=== PATIENT | female | born 1970 | race Caucasian/White ===

== ENCOUNTER 2016-11-02 05:34 | Emergency (ER) | payer OTHER ==
--- NOTE | 2016-11-02 07:45 | DIAGNOSTIC IMAGING REPORT ---
PROCEDURE: XR ABDOMEN 1 VIEW UPRIGHT INDICATION: ABDOMINAL PAIN, initial encounter TECHNIQUE: AP upright view. COMPARISON: None. FINDINGS: Gastric band device in place. Lower abdominal and upper pelvic surgical tacks consistent with a herniorrhaphy. Distended stomach with large air-fluid level. There are small air fluid levels throughout the abdomen. There is no free air, mass or suspicious calcification. Mild degenerative changes. IMPRESSION: 1. Gastric band device in place 2. Ventral herniorrhaphy 3. Diffuse air-fluid levels which may represent gastroenteritis or ileus. Small bowel obstruction is less likely.
--- NOTE | 2016-11-02 08:14 | ED NURSING NOTES ---
Clinical Report - Nurses [facility] [address] [place] [address] 11/02/2016 5:35 Patient: JENNIFER BROWN TRIAGE Triage time 0544. Acuity: LEVEL 3. Chief Complaint: NAUSEA, VOMITING and DIARRHEA and ACHES. --05:48 Robb Mcgrath R.N. 05:44 11/02/16. BP: 96/61. HR: 82. RR: 16. O2 saturation: 100%. Temp: 98 F. Pain level now 10. --05:48 Robb Mcgrath R.N. Weight: 81.6 kg stated. Height/Length: 65 inches Per Patient. BMI: 30. --05:48 Rbob Mcgrath R.N. Medications None. --05:45 Robb Mcgrath R.N. Allergies Zofran. --05:45 Robb Mcgrath R.N. History Arrived by private vehicle. Historian: patient. Unaccompanied. ( wednesday last). Last oral intake by patient was (minutes ago). Treatment SERVICE MEMBER: (gatorade). PAST MEDICAL HX: Last normal menstrual period- about 1 months ago. SOCIAL HX: Heavy tobacco smoker- 1 pack per day. History of occasional drug use: marijuana. No alcohol use. FALL RISK ASSESSMENT: Fall risk assessment completed. No fall risk identified. NUTRITIONAL RISK ASSESSMENT: The nutritional risk assessment revealed no deficiencies. FUNCTIONAL ASSESSMENT: Functional assessment: no impairments noted. LEARNING NEEDS ASSESSMENT: The learning needs assessment revealed no barriers. SKIN INTEGRITY ASSESSMENT: Skin integrity risk assessment completed. No skin integrity risk identified. --05:48 Robb Mcgrath R.N. PAST MEDICAL HX: ( pt sitting in triage drinking gatorade without incident.). --05:50 Robb Mcgrath R.N. ( throws up any food eaten). --05:50 Robb Mcgrath R.N. ADDITIONAL SURGERIES: Hernia Repair. Lapband. --05:46 Robb Mcgrath R.N. Interventions ID band on patient. --05:48 Robb Mcgrath R.N. PHYSICAL ASSESSMENT GENERAL / NEURO / PSYCH: Alert. Oriented X 4. Appears in no acute distress. HEENT: Mucous membranes are pink. RESPIRATORY: Respirations not labored. Breath sounds within normal limits. CVS: Normal sinus rhythm noted. Capillary refill less than 2 seconds. GI / : Abdomen soft. Bowel sounds within normal limits. SKIN: Skin is warm and dry. --05:49 Robb Mcgrath R.N. NURSING PROGRESS NOTES Patient gowned. Head of bed elevated. Reassurance given. Patient identifiers checked. Call light placed in reach. Side rails up x 2. Bed placed in lowest position. Brakes of bed on. --05:49 Robb Mcgrath R.N. 06:57 11/02/2016 Site #1 started via IV antecubital space with an 20g angiocath; one attempt. Blood drawn: rainbow set. Labeled in the presence of the patient and sent to the lab. Saline lock flushed with saline. --06:57 Robb Mcgrath R.N. 06:57 11/02/2016 PHENERGAN (Promethazine HCl) IVP 12.5 mg given. via site #1. Allergies verified and confirmed 5 rights. IV patency established. IV site checked: no pain, redness, or swelling. IV flushed thoroughly pre- and post-medication administration. --06:57 Robb Mcgrath R.N. 07:25 11/02/2016 Started bag #1 1000 mL IV Fluids IV NS (Saline); at 1000 mL/hr over 1 hour(s) via site #1. Completed per protocol. --07:25 Renetta Lemus R.N. Call light placed in reach. Side rails up x 2. Bed placed in lowest position. Brakes of bed on. Care transferred and report given (MARCELINA Jackson). ( Report from Leg Man, RN. Pt is in X-ray at time of report. When pt returns, IVF can be initiated. 0725, pt in room, lying on right side, sleeping. VS taken. Pt awakes to talk with RN.). --07:28 Renetta Lemus R.N. 07:25 11/02/16. BP: 129/64. HR: 84. RR: 18. O2 saturation: 100%. Pain level now 0/10. --07:28 Renetta Lemus R.N. The patient is resting quietly and sleeping. --07:56 Renetta Lemus R.N. 07:56 11/02/16. HR: 87. O2 saturation: 100%. --07:56 Renetta Lemus R.N. 08:37 11/02/2016 Site #1 removed upon discharge. --08:37 Renetta Lemus R.N. 08:38 11/02/2016 IV Fluids IV NS Discontinued: bag #1 infused. Total amount infused: 1000 mL. IV patency established. IV site checked: no pain, redness, or swelling. IV flushed thoroughly. --08:38 Renetta Lemus R.N. DISPOSITION / DISCHARGE Condition at departure: improved and stable. No learning barriers present. Reviewed medication(s). Work note given. Patient verbalized understanding. Written instructions provided in Estonian. The patient was discharged by the physician. She was discharged home and accompanied by pt calling for a ride she states. She left the Emergency Department ambulatory and via private vehicle. --08:39 Renetta Lemus R.N. 08:38 11/02/16. BP: 143/79. HR: 80. RR: 18. O2 saturation: 100%. Pain level now 0/10. --08:39 Renetta Lemus R.N. Departure time: 08:39 Nov 02 2016. --08:39 Renetta Lemus R.N. ( pt escorted out to the lobby, wanted to sleep in the room.). --08:39 Renetta Lemus R.N. Locked/Released at 11/02/2016 9:33 by Reentta Lemus R.N.
--- NOTE | 2016-11-02 08:14 | ED ORDER SUMMARY ---
..... Patient: JENNIFER BROWN OrderSheet [facility] VisitID: [id number] [address] [place] [address] 46y, F Registration Date/Time: 11/02/2016 ORDER SHEET Weight: 81.6 kg (stated) Allergies: Zofran GENERAL ORDERS: Abdomen 1V Upright Urgent (06:38 11/02/2016 Jayce COUCH) (Ack 6:49 CHagjo ann ER Supervisor [employer]) (6:57 Yenny R.N.) CBC w Diff Urgent (06:38 11/02/2016 Jayce COUCH) (Ack 6:49 Leyla ER Supervisor [employer]) (6:57 Yenny R.N.) CMP Urgent (06:38 11/02/2016 Jayce COUCH) (Ack 6:49 Leyla ER Supervisor [employer]) (6:57 Yenny R.N.) MEDICATION ORDERS: Phenergan IV 12.5 mg (NOW) (06:24 11/02/2016 Jayce COUCH) (6:57 Yenny R.N.) IV FLUIDS: IV NS : initial bolus 1000 mL (1000 mL/hr), then 500 mL/hr for 2h (NOW); Routine (06:23 11/02/2016 Jayce COUCH) (7:25 Kaleb R.N.) ORDER SHEET NOTES: [Electronically signed by Renetta Lemus R.N. (09:33 11/02/2016)] [Electronically signed by Ozzy Hicks MD (12:21 11/05/2016)] [Electronically locked/signed by Renetta Lemus R.N. (09:33 11/02/2016)]
--- NOTE | 2016-11-02 08:14 | ED ORDER SUMMARY ---
..... Patient: JENNIFER BROWN OrderSheet [facility] VisitID: [id number] [address] [place] [address] 46y, F Registration Date/Time: 11/02/2016 ORDER SHEET Weight: 81.6 kg (stated) Allergies: Zofran GENERAL ORDERS: Abdomen 1V Upright Urgent (06:38 11/02/2016 Jayce COUCH) (Ack 6:49 CHagjo ann ER Stencil Maker) (6:57 Yenny R.N.) CBC w Diff Urgent (06:38 11/02/2016 Jayce COUCH) (Ack 6:49 Leyla ER Stencil Maker) (6:57 Yenny R.N.) CMP Urgent (06:38 11/02/2016 Jayce COUCH) (Ack 6:49 Leyla ER Stencil Maker) (6:57 Yenny R.N.) MEDICATION ORDERS: Phenergan IV 12.5 mg (NOW) (06:24 11/02/2016 Jayce COUCH) (6:57 Yenny R.N.) IV FLUIDS: IV NS : initial bolus 1000 mL (1000 mL/hr), then 500 mL/hr for 2h (NOW); Routine (06:23 11/02/2016 Jayce COUCH) (7:25 Kaleb R.N.) ORDER SHEET NOTES: [Electronically signed by Renetta Lemus R.N. (09:33 11/02/2016)] [Electronically signed by Ozzy Hicks MD (12:21 11/05/2016)] [Electronically locked/signed by Renetta Lemus R.N. (09:33 11/02/2016)]
--- NOTE | 2016-11-02 08:14 | ED NURSING NOTES ---
Clinical Report - Nurses [facility] [address] [place] [address] 11/02/2016 5:35 Patient: JENNIFER BROWN TRIAGE Triage time 0544. Acuity: LEVEL 3. Chief Complaint: NAUSEA, VOMITING and DIARRHEA and ACHES. --05:48 Robb Mcgrath R.N. 05:44 11/02/16. BP: 96/61. HR: 82. RR: 16. O2 saturation: 100%. Temp: 98 F. Pain level now 10. --05:48 Robb Mcgrath R.N. Weight: 81.6 kg stated. Height/Length: 65 inches Per Patient. BMI: 30. --05:48 Robb Mcgrath R.N. Medications None. --05:45 Robb Mcgrath R.N. Allergies Zofran. --05:45 Robb Mcgrath R.N. History Arrived by private vehicle. Historian: patient. Unaccompanied. ( wednesday last). Last oral intake by patient was (minutes ago). Treatment ELECTRICAL APPLIANCE REPAIRER: (gatorade). PAST MEDICAL HX: Last normal menstrual period- about 1 months ago. SOCIAL HX: Heavy tobacco smoker- 1 pack per day. History of occasional drug use: marijuana. No alcohol use. FALL RISK ASSESSMENT: Fall risk assessment completed. No fall risk identified. NUTRITIONAL RISK ASSESSMENT: The nutritional risk assessment revealed no deficiencies. FUNCTIONAL ASSESSMENT: Functional assessment: no impairments noted. LEARNING NEEDS ASSESSMENT: The learning needs assessment revealed no barriers. SKIN INTEGRITY ASSESSMENT: Skin integrity risk assessment completed. No skin integrity risk identified. --05:48 Robb Mcgrath R.N. PAST MEDICAL HX: ( pt sitting in triage drinking gatorade without incident.). --05:50 Robb Mcgrath R.N. ( throws up any food eaten). --05:50 Robb Mcgrath R.N. ADDITIONAL SURGERIES: Hernia Repair. Lapband. --05:46 Robb Mcgrath R.N. Interventions ID band on patient. --05:48 Robb Mcgrath R.N. PHYSICAL ASSESSMENT GENERAL / NEURO / PSYCH: Alert. Oriented X 4. Appears in no acute distress. HEENT: Mucous membranes are pink. RESPIRATORY: Respirations not labored. Breath sounds within normal limits. CVS: Normal sinus rhythm noted. Capillary refill less than 2 seconds. GI / : Abdomen soft. Bowel sounds within normal limits. SKIN: Skin is warm and dry. --05:49 Robb Mcgrath R.N. NURSING PROGRESS NOTES Patient gowned. Head of bed elevated. Reassurance given. Patient identifiers checked. Call light placed in reach. Side rails up x 2. Bed placed in lowest position. Brakes of bed on. --05:49 Robb Mcgrath R.N. 06:57 11/02/2016 Site #1 started via IV antecubital space with an 20g angiocath; one attempt. Blood drawn: rainbow set. Labeled in the presence of the patient and sent to the lab. Saline lock flushed with saline. --06:57 Robb Mcgarth R.N. 06:57 11/02/2016 PHENERGAN (Promethazine HCl) IVP 12.5 mg given. via site #1. Allergies verified and confirmed 5 rights. IV patency established. IV site checked: no pain, redness, or swelling. IV flushed thoroughly pre- and post-medication administration. --06:57 Robb Mcgrath R.N. 07:25 11/02/2016 Started bag #1 1000 mL IV Fluids IV NS (Saline); at 1000 mL/hr over 1 hour(s) via site #1. Completed per protocol. --07:25 Renetta Lemus R.N. Call light placed in reach. Side rails up x 2. Bed placed in lowest position. Brakes of bed on. Care transferred and report given (MARCELINA Jackson). ( Report from Academic Affairs Specialist, RN. Pt is in X-ray at time of report. When pt returns, IVF can be initiated. 0725, pt in room, lying on right side, sleeping. VS taken. Pt awakes to talk with RN.). --07:28 Renetta Lemus R.N. 07:25 11/02/16. BP: 129/64. HR: 84. RR: 18. O2 saturation: 100%. Pain level now 0/10. --07:28 Renetta Lemus R.N. The patient is resting quietly and sleeping. --07:56 Renetta Lemus R.N. 07:56 11/02/16. HR: 87. O2 saturation: 100%. --07:56 Renetta Leums R.N. 08:37 11/02/2016 Site #1 removed upon discharge. --08:37 Renetta Lemus R.N. 08:38 11/02/2016 IV Fluids IV NS Discontinued: bag #1 infused. Total amount infused: 1000 mL. IV patency established. IV site checked: no pain, redness, or swelling. IV flushed thoroughly. --08:38 Renetta Lemus R.N. DISPOSITION / DISCHARGE Condition at departure: improved and stable. No learning barriers present. Reviewed medication(s). Work note given. Patient verbalized understanding. Written instructions provided in Hebrew. The patient was discharged by the physician. She was discharged home and accompanied by pt calling for a ride she states. She left the Emergency Department ambulatory and via private vehicle. --08:39 Renetta Lemus R.N. 08:38 11/02/16. BP: 143/79. HR: 80. RR: 18. O2 saturation: 100%. Pain level now 0/10. --08:39 Renetta Lemus R.N. Departure time: 08:39 Nov 02 2016. --08:39 Renetta Lemus R.N. ( pt escorted out to the lobby, wanted to sleep in the room.). --08:39 Renetta Lemus R.N. Locked/Released at 11/02/2016 9:33 by Renetta Lemus R.N.
--- NOTE | 2016-11-02 08:14 | ED CLINICAL REPORT ---
Clinical Report - Physicians/Mid Levels [facility] [address] [place] [address] 11/02/2016 5:35 Patient: JENNIFER BROWN Time Seen: 06:18 Nov 02 2016. Arrived- By private vehicle. Historian- patient. HISTORY OF PRESENT ILLNESS Chief Complaint: VOMITING and DIARRHEA. 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 and is still present. The patient has had nausea and abdominal pain. She has had moderate vomiting (every time we eat.). The vomiting has occurred several times. She has had moderate loose stools. This has occurred several times. It has been watery. Has not recently been on antibiotics. Possible bad food exposure. No known contact with a sick individual. The illness is described as moderate. (( pt sitting in triage drinking gatorade without incident.).). Similar symptoms previously: None. Recent medical care: Not recently seen/assessed. REVIEW OF SYSTEMS No fever, muscle aches, difficulty with urination, dark urine or headache. No dizziness, sore throat, cough, chest pain or difficulty breathing. No excessive urination, skin rash or back pain. All systems otherwise negative, except as recorded above. PAST HISTORY Hernia Repair. Lapband. Medications: None. Allergies: Zofran. SOCIAL HISTORY Heavy tobacco smoker (cigarette)- less than 1 pack per day. History of drug use: marijuana. ADDITIONAL NOTES The nursing notes have been reviewed. PHYSICAL EXAM Vital Signs: 11/02/2016 05:44 BP: 96/61. HR: 82. RR: 16. O2 saturation: 100%. Temp: 98 F. Appearance: Alert. Eyes: Pupils equal, round and reactive to light. Eyes normal inspection. ENT: Nose normal. Dry mucous membranes present. Neck: Normal inspection. CVS: Normal heart rate and rhythm. Heart sounds normal. Pulses normal. Respiratory: No respiratory distress. Breath sounds normal. Abdomen: Soft. Mild tenderness in the periumbilical area. Bowel sounds normal. Back: Normal inspection. Skin: Skin warm. Normal skin color. No rash. Extremities: Extremities exhibit normal ROM. No lower extremity edema. Neuro: Oriented X 3. No motor deficit. LABS, X-RAYS, AND EKG KUB: Normal abdominal study. Laboratory Tests: CBC w Diff: (PRANAY: 11/02/2016 06:48) ( [facility] 11/02/2016 06:57) Final results Test Result Flag Units (Reference) WHITE BLOOD COUNT 16.8 H K/uL (4.5-11.5) RED BLOOD COUNT 5.58 H M/uL (4.00-5.20) HEMOGLOBIN 15.1 gm/dL (12.0-16.0) HEMATOCRIT 46.6 H % (36.0-46.0) MEAN CELL VOLUME 83 fL (80-100) MEAN CORPUSCULAR HGB 27 pg (26-34) MEAN CORPUSCULAR HGB CONC 33 g/dL (31-37) RED CELL DISTRIBUTION WIDTH 15.6 H % (11.6-14.8) PLATELET COUNT 479 H K/uL (150-400) NEUTROPHIL % 83.9 H % (50-75) LYMPH % 9.8 L % (25-40) MONO % 5.3 % (3-14) EOSINOPHIL % 0.7 % (0-4) BASOPHIL % 0.3 % (0-2) CMP: (PRANAY: 11/02/2016 06:48) ( [facility] 11/02/2016 07:13) Final results Test Result Flag Units (Reference) GLUCOSE 137 H mg/dL (70-110) BUN 14 mg/dL (7-18) CREATININE 1.2 mg/dL (0.6-1.3) Estimated GFR 51.63 mL/min Estimated GFR- >60 mL/min Note: Persistent reduction over 3 months in eGFR<60 mL/min/1.73 m2 defines CKD. Patients with eGFR values>=60 mL/min/1.73 m2 may also have CKD if evidence ofpersistent proteinuria. Additional information may be foundat www.kidney.org. SODIUM 137 mmol/L (136-145) POTASSIUM 3.7 mmol/L (3.5-5.1) CHLORIDE 101 mmol/L (98-107) CARBON DIOXIDE 19 L mmol/L (21-32) CALCIUM 8.9 mg/dL (8.5-10.1) TOTAL PROTEIN 7.9 g/dL (6.4-8.2) ALBUMIN 3.3 g/dL (3.3-5.0) BILIRUBIN, TOTAL 0.3 mg/dL (0.0-1.0) ALKALINE PHOSPHATASE 109 U/L (46-116) AST (SGOT) 11 L U/L (15-37) ALT (SGPT) 17 U/L (12-78) . PROGRESS AND PROCEDURES Course of Care: IV NS Phenergan 12.5 mg IV Patient is stable. Symptoms much better. Patient/family counseled. Disposition: Discharged. Condition: stable. CLINICAL IMPRESSION Acute norovirus gastroenteritis. INSTRUCTIONS No strenuous activity. Rest. Take clear liquids only (frequent sips) for the next 12 hours until better. Advance diet as tolerated. (Imodium as needed). Warnings: Further evaluation is necessary. GENERAL WARNINGS: Return or contact your physician immediately if your condition worsens or changes unexpectedly, if not improving as expected, or if other problems arise. Prescription Medications: Phenergan 12.5 mg tablets: take 1-2 orally every 6 hours as needed for nausea. Dispense ten (10). No refill. Substitution is permissible OTC Medications: Take acetaminophen (Tylenol, Datril, etc.) according to label instructions. Available over the counter. Understanding of the discharge instructions verbalized by patient. Follow-up with: [facility], , , [address], , [place], [address] Follow up in three days if not better. (Electronically signed by Ozzy Hicks MD 11/05/2016 12:21)
--- NOTE | 2016-11-02 08:14 | ED CLINICAL REPORT ---
Clinical Report - Physicians/Mid Levels [facility] [address] [place] [address] 11/02/2016 5:35 Patient: JENNIFER BROWN Time Seen: 06:18 Nov 02 2016. Arrived- By private vehicle. Historian- patient. HISTORY OF PRESENT ILLNESS Chief Complaint: VOMITING and DIARRHEA. 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 and is still present. The patient has had nausea and abdominal pain. She has had moderate vomiting (every time we eat.). The vomiting has occurred several times. She has had moderate loose stools. This has occurred several times. It has been watery. Has not recently been on antibiotics. Possible bad food exposure. No known contact with a sick individual. The illness is described as moderate. (( pt sitting in triage drinking gatorade without incident.).). Similar symptoms previously: None. Recent medical care: Not recently seen/assessed. REVIEW OF SYSTEMS No fever, muscle aches, difficulty with urination, dark urine or headache. No dizziness, sore throat, cough, chest pain or difficulty breathing. No excessive urination, skin rash or back pain. All systems otherwise negative, except as recorded above. PAST HISTORY Hernia Repair. Lapband. Medications: None. Allergies: Zofran. SOCIAL HISTORY Heavy tobacco smoker (cigarette)- less than 1 pack per day. History of drug use: marijuana. ADDITIONAL NOTES The nursing notes have been reviewed. PHYSICAL EXAM Vital Signs: 11/02/2016 05:44 BP: 96/61. HR: 82. RR: 16. O2 saturation: 100%. Temp: 98 F. Appearance: Alert. Eyes: Pupils equal, round and reactive to light. Eyes normal inspection. ENT: Nose normal. Dry mucous membranes present. Neck: Normal inspection. CVS: Normal heart rate and rhythm. Heart sounds normal. Pulses normal. Respiratory: No respiratory distress. Breath sounds normal. Abdomen: Soft. Mild tenderness in the periumbilical area. Bowel sounds normal. Back: Normal inspection. Skin: Skin warm. Normal skin color. No rash. Extremities: Extremities exhibit normal ROM. No lower extremity edema. Neuro: Oriented X 3. No motor deficit. LABS, X-RAYS, AND EKG KUB: Normal abdominal study. Laboratory Tests: CBC w Diff: (PRANAY: 11/02/2016 06:48) ( [facility] 11/02/2016 06:57) Final results Test Result Flag Units (Reference) WHITE BLOOD COUNT 16.8 H K/uL (4.5-11.5) RED BLOOD COUNT 5.58 H M/uL (4.00-5.20) HEMOGLOBIN 15.1 gm/dL (12.0-16.0) HEMATOCRIT 46.6 H % (36.0-46.0) MEAN CELL VOLUME 83 fL (80-100) MEAN CORPUSCULAR HGB 27 pg (26-34) MEAN CORPUSCULAR HGB CONC 33 g/dL (31-37) RED CELL DISTRIBUTION WIDTH 15.6 H % (11.6-14.8) PLATELET COUNT 479 H K/uL (150-400) NEUTROPHIL % 83.9 H % (50-75) LYMPH % 9.8 L % (25-40) MONO % 5.3 % (3-14) EOSINOPHIL % 0.7 % (0-4) BASOPHIL % 0.3 % (0-2) CMP: (PRANAY: 11/02/2016 06:48) ( D[facility]Rcv[facility] 11/02/2016 07:13) Final results Test Result Flag Units (Reference) GLUCOSE 137 H mg/dL (70-110) BUN 14 mg/dL (7-18) CREATININE 1.2 mg/dL (0.6-1.3) Estimated GFR 51.63 mL/min Estimated GFR- >60 mL/min Note: Persistent reduction over 3 months in eGFR<60 mL/min/1.73 m2 defines CKD. Patients with eGFR values>=60 mL/min/1.73 m2 may also have CKD if evidence ofpersistent proteinuria. Additional information may be foundat www.kidney.org. SODIUM 137 mmol/L (136-145) POTASSIUM 3.7 mmol/L (3.5-5.1) CHLORIDE 101 mmol/L (98-107) CARBON DIOXIDE 19 L mmol/L (21-32) CALCIUM 8.9 mg/dL (8.5-10.1) TOTAL PROTEIN 7.9 g/dL (6.4-8.2) ALBUMIN 3.3 g/dL (3.3-5.0) BILIRUBIN, TOTAL 0.3 mg/dL (0.0-1.0) ALKALINE PHOSPHATASE 109 U/L (46-116) AST (SGOT) 11 L U/L (15-37) ALT (SGPT) 17 U/L (12-78) . PROGRESS AND PROCEDURES Course of Care: IV NS Phenergan 12.5 mg IV Patient is stable. Symptoms much better. Patient/family counseled. Disposition: Discharged. Condition: stable. CLINICAL IMPRESSION Acute norovirus gastroenteritis. INSTRUCTIONS No strenuous activity. Rest. Take clear liquids only (frequent sips) for the next 12 hours until better. Advance diet as tolerated. (Imodium as needed). Warnings: Further evaluation is necessary. GENERAL WARNINGS: Return or contact your physician immediately if your condition worsens or changes unexpectedly, if not improving as expected, or if other problems arise. Prescription Medications: Phenergan 12.5 mg tablets: take 1-2 orally every 6 hours as needed for nausea. Dispense ten (10). No refill. Substitution is permissible OTC Medications: Take acetaminophen (Tylenol, Datril, etc.) according to label instructions. Available over the counter. Understanding of the discharge instructions verbalized by patient. Follow-up with: [facility], , , [address], , [place], [address] Follow up in three days if not better. (Electronically signed by Ozzy Hicks MD 11/05/2016 12:21)
--- NOTE | 2016-11-05 12:21 | ED DISCHARGE INSTRUCTIONS ---
Patient: JENNIFER BROWN General Instructions [facility] VisitID: [id number] [address] [place] [address] 46y, F Registration Date/Time: 11/02/2016 Acute norovirus gastroenteritis. INSTRUCTIONS No strenuous activity. Rest. Take clear liquids only (frequent sips) for the next 12 hours until better. Advance diet as tolerated. (Imodium as needed). Warnings: Further evaluation is necessary. GENERAL WARNINGS: Return or contact your physician immediately if your condition worsens or changes unexpectedly, if not improving as expected, or if other problems arise. Prescription Medications: Phenergan 12.5 mg tablets: take 1-2 orally every 6 hours as needed for nausea. Dispense ten (10). No refill. Substitution is permissible OTC Medications: Take acetaminophen (Tylenol, Datril, etc.) according to label instructions. Available over the counter. Understanding of the discharge instructions verbalized by patient. Follow-up with: [facility], , , [address], , [place], [address] Follow up in three days if not better. ADDITIONAL INFORMATION Viral Gastroenteritis (6Yr-Adult) Gastroenteritis is another name for thestomach flu.It is most often caused by a virus that affects the stomach and intestinal tract. Symptoms include stomach cramping and fever, vomiting and/or diarrhea, and can last from 2 to 7 days. The danger from repeated vomiting or diarrhea is dehydration. This is the loss of too much water and minerals from the body. When this occurs, body fluids must be replaced. Antibiotics are not effective for this illness, but simple home treatment will be helpful. Home Care If symptoms are severe, rest at home for the next 24 hours. Avoid tobacco, caffeine, and alcohol use, which can worsen symptoms. Acetaminophen (Tylenol) or ibuprofen (Motrin, Advil) may be usedfor fever or pain unless another medication was prescribed. NOTE: If you have chronic liver or kidney disease or ever had a stomach ulcer or GI bleeding, talk with your doctor before using these medicines. Aspirin should never be used in anyone under 18 years of age who is ill with a fever. It may cause severe liver damage. If medicines for diarrhea or vomiting were prescribed, be sure they are takenonly as directed. If vomiting, drink small amounts of clear fluids (such as water, sports drinks, clear sodas) at frequent intervals to prevent dehydration. Start with 1 to 2 tablespoons every 10 minutes. Once vomiting stops, follow these guidelines: During The First 12 To 24 Hours follow the diet below: Beverages: Sport drinks like Gatorade, soft drinks without caffeine; michelle solo, mineral water (plain or flavored), decaffeinated tea and coffee. Soups: Clear broth, consomm and bouillon Desserts: Plain gelatin (Jell-O), Popsicles and fruit juice bars. During The Next 24 Hours you may add the following to the above: Hot cereal, plain toast, bread, rolls, crackers Plain noodles, rice, mashed potatoes, chicken noodle or rice soup Unsweetened canned fruit (avoid pineapple), bananas Limit fat intake to less than 15 grams per day by avoiding margarine, butter, oils, mayonnaise, sauces, gravies, fried foods, peanut butter, meat, poultry, and fish. Limit fiber; avoid raw or cooked vegetables, fresh fruits (except bananas), and bran cereals. Limit caffeine and chocolate. Do not use spices or seasonings except salt. During The Next 24 Hours The patient can gradually resume a normal diet as symptoms lessen. Preventing Spread Hand washing with soap and water is the best way to prevent the spread of viruses. Caregivers should wash their hands before andafter touching the sick person. The sick person, as well as everyone in the family,should wash their hands after using the toilet and before meals. Clean the toilet after each use. People with diarrhea should not prepare food for others. If you are preparing your own foods, wash your hands before and after. Follow Up with your doctor as advised. Call your doctor if you are not improving over the next 2 to 3 days. If a stool (diarrhea) sample was taken, you may call in 2 days (or as directed) for the results. Get Prompt Medical Attention if any of the following occur: Increasing abdominal pain Continued vomiting (unable to keep liquids down) Frequent diarrhea (more than 5 times a day) Blood in vomit or stool (black or red color) Dark urine, reduced urine output, or extreme thirst Weakness, dizziness, fainting Drowsiness, confusion, stiff neck, or seizure Fever of 100.4F (38C) oral or higher, not better with fever medication New rash Clear Liquid Diet Clear liquids are any liquid that you can see through as well as those that are very easy to digest. This is used while the body is recovering from irritation or infection of the stomach or intestinal tract. It may also be used before special procedures or surgery. This diet is to be used no more than three days. You may include the following items. Adults Adults should drink a total of 23 quarts of liquid per day. It may be easier to drink small frequent servings rather than a few large ones. Liquids can include: Fruit juices.Strained orange juice or lemonade (no pulp), apple, grape and cranberry juice, clear fruit drinks, sports drinks Beverages.Sport drinks, sodas, mineral water (plain or flavored), tea, black coffee, liquid gelatin (add twice the recommended amount of water) Soups.Clear broth, consomm, bouillon Desserts.Plain gelatin, popsicles, fruit juice bars Children Over 2 years old The following liquids are acceptable for children over age 2: Fruit juices.Strained orange juice or lemonade (no pulp), apple, grape and cranberry juice, clear fruit drinks Beverages. Sports drinks, sodas, mineral water (plain or flavored), tea, liquid gelatin (add twice the recommended amount of water) Soups. Clear broth, consomm, bouillon Desserts. Plain gelatin, popsicles, fruit juice bars Children under 2 years old Oral rehydration fluids such are available at drug stores and most grocery stores without a prescription. Promethazine Hydrochloride Oral tablet What is this medicine? PROMETHAZINE (proe METH a zeen) is an antihistamine. It is used to treat allergic reactions and to treat or prevent nausea and vomiting from illness or motion sickness. It is also used to make you sleep before surgery, and to help treat pain or nausea after surgery. How should I use this medicine? Take this medicine by mouth with a glass of water. Follow the directions on the prescription label. Take your doses at regular intervals. Do not take your medicine more often than directed. Talk to your senior technologist regarding the use of this medicine in children. Special care may be needed. This medicine should not be given to infants and children younger than 2 years old. What side effects may I notice from receiving this medicine? Side effects that you should report to your doctor or health career and guidance counselor as soon as possible: blurred vision irregular heartbeat, palpitations or chest pain muscle or facial twitches pain or difficulty passing urine seizures skin rash slowed or shallow breathing unusual bleeding or bruising yellowing of the eyes or skin Side effects that usually do not require medical attention (report to your doctor or health career and guidance counselor if they continue or are bothersome): headache nightmares, agitation, nervousness, excitability, not able to sleep (these are more likely in children) stuffy nose What may interact with this medicine? Do not take this medicine with any of the following medications: medicines called MAO Inhibitors like Nardil, Parnate, Marplan, Eldepryl other phenothiazines like trimethobenzamide This medicine may also interact with the following medications: barbiturates like phenobarbital bromocriptine certain antidepressants certain antihistamines used in allergy or cold medicines epinephrine levodopa medicines for sleep medicines for mental problems and psychotic disturbances medicines for movement abnormalities as in Parkinson's disease, or for gastrointestinal problems muscle relaxants prescription pain medicines What if I miss a dose? If you miss a dose, take it as soon as you can. If it is almost time for your next dose, take only that dose. Do not take double or extra doses. Where should I keep my medicine? Keep out of the reach of children. Store at room temperature, between 20 and 25 degrees C (68 and 77 degrees F). Protect from light. Throw away any unused medicine after the expiration date. What should I tell my health care provider before I take this medicine? They need to know if you have any of these conditions: glaucoma high blood pressure or heart disease kidney disease liver disease lung or breathing disease, like asthma prostate trouble pain or difficulty passing urine seizures an unusual or allergic reaction to promethazine or phenothiazines, other medicines, foods, dyes, or preservatives or trying to get breast-feeding What should I watch for while using this medicine? Tell your doctor or health career and guidance counselor if your symptoms do not start to get better in 1 to 2 days. You may get drowsy or dizzy. Do not drive, use machinery, or do anything that needs mental alertness until you know how this medicine affects you. To reduce the risk of dizzy or fainting spells, do not stand or sit up quickly, especially if you are an older patient. Alcohol may increase dizziness and drowsiness. Avoid alcoholic drinks. Your mouth may get dry. Chewing sugarless gum or sucking hard candy, and drinking plenty of water may help. Contact your doctor if the problem does not go away or is severe. This medicine may cause dry eyes and blurred vision. If you wear contact lenses you may feel some discomfort. Lubricating drops may help. See your eye doctor if the problem does not go away or is severe. This medicine can make you more sensitive to the sun. Keep out of the sun. If you cannot avoid being in the sun, wear protective clothing and use sunscreen. Do not use sun lamps or tanning beds/booths. If you are diabetic, check your blood-sugar levels regularly. You have been given the following additional information: Gastroenteritis, Viral (6Y-Adult) Diet, Clear Liquid Promethazine Hydrochloride Oral tablet No strenuous activity. Rest. (Electronically signed by Ozzy Hicks MD 11/05/2016 12:21)
--- NOTE | 2016-11-05 12:21 | ED MAR SUMMARY ---
..... Medication Administration Record [facility] [address] [place] [address] Patient: JENNIFER BROWN Visit ID: [id number] 46y, F Weight: 81.6 kg Height/Length: 65 in BMI: 30 ALLERGIES: Zofran Given 06:57 11/02/2016 Robb Mcgrath R.N. Medication Administered: PHENERGAN [IVP] (PROMETHAZINE HCL), Dose: 12.5 mg IVP, Site: #1 AC. Medication Ordered: Phenergan IV 12.5 mg (NOW). Start 07:25 11/02/2016 Renetta Lemus R.N., Stop 08:38 11/02/2016 Renetta Lemus R.N. Medication Administered: IV NS (SALINE), Dose: IV Fluids over 1 hour(s), Rate: 1000 mL/hr, Dispensed: 1000 mL bag, Site: #1 AC. Medication Ordered: IV NS : initial bolus 1000 mL (1000 mL/hr), then 500 mL/hr for 2h (NOW); Routine.
--- NOTE | 2016-11-05 12:21 | ED MED RECONCILIATION SUMMARY ---
Patient: JENNIFER BROWN Medication Reconciliation Report [facility] VisitID: [id number] [address] [place] [address] 46y, F Registration Date/Time: 11/02/2016 Weight: 81.6 kg Height/Length: 65 in. BMI: 30.0 ALLERGIES: Zofran The patient's Home Medications are listed below: NONE. The source(s) of the original Home Medication information: Not obtained. The following Medications were given to the patient in the Emergency Department: PHENERGAN [IVP] IVP 12.5 mg, administered: 11/02/2016 6:57:00 AM IV NS IV Fluids bolus 0, then 1000 mL/hr, administered: 11/02/2016 7:25:00 AM The following Medications were prescribed to the patient: Take acetaminophen (Tylenol, Datril, etc.) according to label instructions. Available over the counter. -- Ozzy Hicks MD Phenergan 12.5 mg tablets: take 1-2 orally every 6 hours as needed for nausea. Dispense ten (10). No refill. Substitution is permissible -- Ozzy Hicks MD
--- NOTE | 2016-11-05 12:21 | ED MAR SUMMARY ---
..... Medication Administration Record [facility] [address] [place] [address] Patient: JENNIFER BROWN Visit ID: [id number] 46y, F Weight: 81.6 kg Height/Length: 65 in BMI: 30 ALLERGIES: Zofran Given 06:57 11/02/2016 Robb Mcgrath R.N. Medication Administered: PHENERGAN [IVP] (PROMETHAZINE HCL), Dose: 12.5 mg IVP, Site: #1 AC. Medication Ordered: Phenergan IV 12.5 mg (NOW). Start 07:25 11/02/2016 Renetta Lemus R.N., Stop 08:38 11/02/2016 Renetta Lemus R.N. Medication Administered: IV NS (SALINE), Dose: IV Fluids over 1 hour(s), Rate: 1000 mL/hr, Dispensed: 1000 mL bag, Site: #1 AC. Medication Ordered: IV NS : initial bolus 1000 mL (1000 mL/hr), then 500 mL/hr for 2h (NOW); Routine.
--- NOTE | 2016-11-05 12:21 | ED MED RECONCILIATION SUMMARY ---
Patient: JENNIFER BROWN Medication Reconciliation Report [facility] VisitID: [id number] [address] [place] [address] 46y, F Registration Date/Time: 11/02/2016 Weight: 81.6 kg Height/Length: 65 in. BMI: 30.0 ALLERGIES: Zofran The patient's Home Medications are listed below: NONE. The source(s) of the original Home Medication information: Not obtained. The following Medications were given to the patient in the Emergency Department: PHENERGAN [IVP] IVP 12.5 mg, administered: 11/02/2016 6:57:00 AM IV NS IV Fluids bolus 0, then 1000 mL/hr, administered: 11/02/2016 7:25:00 AM The following Medications were prescribed to the patient: Take acetaminophen (Tylenol, Datril, etc.) according to label instructions. Available over the counter. -- Ozzy Hicks MD Phenergan 12.5 mg tablets: take 1-2 orally every 6 hours as needed for nausea. Dispense ten (10). No refill. Substitution is permissible -- Ozzy Hicks MD
== END 2016-11-02 08:00 | disposition home or self-care (01) ==
LOC: ED SRH 05:34
DX: A08.11 Acute gastroenteropathy due to Norwalk agent (principal); Z88.8 Allergy status to other drugs, medicaments and biological substances; F17.210 Nicotine dependence, cigarettes, uncomplicated
CPT/HCPCS: 90100; 95059

== ENCOUNTER 2016-12-07 15:57 | Emergency (ER) | payer OTHER ==
--- NOTE | 2016-12-07 18:03 | ED CLINICAL REPORT ---
Clinical Report - Physicians/Mid Levels [facility] [address] [place] [address] 12/07/2016 15:58 Patient: JENNIFER BROWN Time Seen: 17:46; initial patient contact, initial documentation, patient care assumed. Arrived- By private vehicle. Historian- patient. HISTORY OF PRESENT ILLNESS Chief Complaint: LESION. This started about 4 days ago and is still present (worse x2 days ago after trying to squeeze it). Not itchy or burning. It is described as painful. It has been located on the left abdomen. No cause has been identified. No recent medication, insect bite or food exposure. Was not recently exposed to poison tricia or poison oak. (pt states as little white head pimple thing). Similar symptoms previously: None. Recent medical care: Not recently seen/assessed. REVIEW OF SYSTEMS No fever, difficulty breathing or abdominal pain. All systems otherwise negative, except as recorded above. PAST HISTORY See nurses notes. PROBLEMS: Gastroenteritis. --16:55 Alethea Gaston R.N. ADDITIONAL SURGERIES: . Hernia Repair. Lapband. --16:55 Alethea Gaston R.N. SOCIAL HISTORY Light tobacco smoker. Regular alcohol use; consumes beer and liquor. History of heavy drug use: cocaine, marijuana. No recent travel. Is a local resident. FAMILY HISTORY Negative. ADDITIONAL NOTES The nursing notes have been reviewed with agreement regarding the chief complaint, HPI, ROS, PMH and patient medications and allergies. PHYSICAL EXAM Vital Signs: 12/07/2016 16:52 BP: 160/71. HR: 76. RR: 21. O2 saturation: 100%. Temp: 97.9 F. Pain level now: 10/10. Have been reviewed as normal and appear to be correct. Appearance: Alert. Oriented X3. No acute distress. Anxious. (and tearful). Neck: Neck supple. Respiratory: No respiratory distress. Abdomen: Nontender. No organomegaly. (only tender directly over the abscess). Skin: Skin warm and dry. Abnormal skin color. No rash. Normal skin turgor. Single medium abscess with drainage and cellulitis to the abdomen (scab in place and abscess draining pus and blood, tender). No fluctuance or pointing. Extremities: Normal external inspection. Extremities nontender. Neuro: Oriented X 3. No motor deficit. No sensory deficit. PROGRESS AND PROCEDURES Course of Care: discussion with pt re tx options, pt tearful and anxious over I&D, stating she was afraid of needles, and it hurt to be pushed on, expressed concerns that abscess may get larger without procedure, advised pt to place warm compresses on area several times daily to try and aid the abscess to open up even more, hole that was present doesn't look big enough for it to drain properly and it needs to drain, agreed to take abx and nsaid, pt also agreed to return if it continues to get worse, but would like to try abx only at this time nurse reported she also encouraged pt to have i&d, but pt declined. Patient counseled in person regarding the patient's stable condition and diagnosis. 18:03. Differential Diagnosis: Other possible considerations: abscess, cellulitis, mrsa, substance abuse. Above considerations are based on history and physical exam. Differential diagnosis was discussed with patient. Disposition: Discharged home in good and improved condition (18:03). Condition: good and stable. CLINICAL IMPRESSION Single deep abscess to the abdominal wall. INSTRUCTIONS Warnings: GENERAL WARNINGS: Return or contact your physician immediately if your condition worsens or changes unexpectedly, if not improving as expected, or if other problems arise. Specifically return if problem worsens. Prescription Medications: Bactrim DS 800 mg / 160 mg: take 1 tablet orally every 12 hours for 10 days. No refill. Motrin 800 mg tablets: take 1 tablet orally every 8 hours as needed for pain. Dispense thirty (30). No refills. Substitution is permissible. Follow-up: Follow up with your doctor in about three days even if well and for wound check. Call for an appointment. Summary of care provided to patient. Understanding of the discharge instructions verbalized by patient. (Electronically signed by Jodie Sanchez A.R.N.P. 12/07/2016 18:44)
--- NOTE | 2016-12-07 18:03 | ED NURSING NOTES ---
Clinical Report - Nurses [facility] [address] [place] [address] 12/07/2016 15:58 Patient: JENNIFER BROWN TRIAGE Triage time 1654 PM. Acuity: LEVEL 3. Chief Complaint: ABDOMINAL PAIN. Alert. No acute distress. --16:58 Alethea Gaston R.N. 16:52 12/07/16. BP: 160/71. HR: 76. RR: 21. O2 saturation: 100%. Temp: 97.9 F. Pain level now: 07/06. --16:58 Alethea Gaston R.N. Weight: 79.3 kg stated. Height/Length: 65 inches Per Patient. BMI: 29.1. --16:54 Alethea Gaston R.N. Medications None. --16:54 Alethea Gaston R.N. Allergies Zofran. --16:54 Alethea Gaston R.N. Medication/allergy information source: the patient. --16:58 Alethea Gaston R.N. History Arrived by private vehicle. Historian: patient. ( Pt states about 4 days ago, thought she had a pimple on her left lower abdomen or a byte of spider, noted 2 days ago getting worst attempted to pop it,). Onset. (3 days). She has had fever and abdominal pain. No nausea, vomiting or diarrhea. Treatment PROFESSOR OF ENGINEERING: None. (percocet, hot compresses). PAST MEDICAL HX: Immunizations: up-to-date. Last normal menstrual period was 2 weeks ago. 1. Para 3. Sexual history - sexually active. No contraception. SOCIAL HX: Light tobacco smoker (cigarette)- less than 1/2 a pack per day. Occasional alcohol use; consumes liquor drinks. History of drug use: cocaine, marijuana. (4 years). No recent travel. No infectious disease exposure. No known contact with a sick individual. ABUSE ASSESSMENT: No report of abuse. SELF HARM ASSESSMENT: A self harm assessment was performed. The patient answered "no" to the question "Do you have thoughts of harming or killing yourself?" and "Have you recently had thoughts about harming or killing others?". FALL RISK ASSESSMENT: Fall risk assessment completed. No fall risk identified. NUTRITIONAL RISK ASSESSMENT: The nutritional risk assessment revealed no deficiencies. FUNCTIONAL ASSESSMENT: Functional assessment: no impairments noted. LEARNING NEEDS ASSESSMENT: The learning needs assessment revealed no barriers. SKIN INTEGRITY ASSESSMENT: Skin integrity risk assessment completed. No skin integrity risk identified. --16:58 Alethea Gaston R.N. PROBLEMS: Gastroenteritis. --16:55 Alethea Gaston R.N. ADDITIONAL SURGERIES: . Hernia Repair. Lapband. --16:55 Alethea Gaston R.N. Interventions ID band on patient. --16:58 Alethea Gaston R.N. PHYSICAL ASSESSMENT Ambulatory to room. ( LLQ with a black/red/hard approximately 2cm x 1cm). GENERAL / NEURO / PSYCH: Alert. Oriented X 4. Appears in no acute distress. HEENT: Mucous membranes are pink. RESPIRATORY: Respirations not labored. Breath sounds within normal limits. CVS: Capillary refill less than 2 seconds. GI / : Abdomen soft. Bowel sounds within normal limits. No nausea noted. SKIN: Skin is warm and dry. --17:00 Alethea Gaston R.N. NURSING PROGRESS NOTES The initial plan of care for this patient has been created This plan of care was discussed with the patient. Patient gowned. Warming measures: blanket applied. Reassurance given. Two patient identifiers checked. Call light placed in reach. Side rails up x 1. --17:00 Alethea Gaston R.N. DISPOSITION / DISCHARGE Departure time: 1824 PM. Condition at departure: unchanged and stable. The goals identified in the patient's plan of care were met. No learning barriers present. Reviewed warnings (S/S of infection getting worst at site). Reviewed medication(s) side effects, precautions, dosing and course information. Prescription(s) given to the patient (Motrin and Bactrim). Patient verbalized understanding. Written instructions provided in [place]. ( Pt given a marker and instructions on how to tx the abcess, supplies of gauze given, pt verbalizes understanding of warning signs). No activity restrictions. Discharge instructions not provided and reviewed with the patient. The patient was discharged by the nurse practitioner. She was discharged home and accompanied by spouse. She left the Emergency Department ambulatory and via private vehicle. Spouse driving. FALL RISK ASSESSMENT: Fall risk assessment completed. No fall risk identified. TED COMA SCORE: Ted Coma Scale: 15- eyes open spontaneously (4); best verbal response- oriented x 4 (5); best motor response- obeys commands (6). --18:25 Alethea Gaston R.N. 18:12 12/07/16. BP: 145/94. HR: 100. RR: 16. O2 saturation: 100%. Temp: 98.9 F (oral). Pain level now: 0/10. --18:25 Alethea Gaston R.N. Locked/Released at 12/07/2016 18:25 by Alethea Gaston R.N.
--- NOTE | 2016-12-07 18:44 | ED DISCHARGE INSTRUCTIONS ---
Patient: JENNIFER BROWN General Instructions [facility] VisitID: [id number] [place] [address] 46y, F Registration Date/Time: 12/07/2016 Single deep abscess to the abdominal wall. INSTRUCTIONS Warnings: GENERAL WARNINGS: Return or contact your physician immediately if your condition worsens or changes unexpectedly, if not improving as expected, or if other problems arise. Specifically return if problem worsens. Prescription Medications: Bactrim DS 800 mg / 160 mg: take 1 tablet orally every 12 hours for 10 days. No refill. Motrin 800 mg tablets: take 1 tablet orally every 8 hours as needed for pain. Dispense thirty (30). No refills. Substitution is permissible. Follow-up: Follow up with your doctor in about three days even if well and for wound check. Call for an appointment. Summary of care provided to patient. Understanding of the discharge instructions verbalized by patient. ADDITIONAL INFORMATION Abscess (Antibiotic Treatment Only) An abscess (sometimes called a boil) occurs when bacteria get trapped under the skin and begin to grow. Pus forms inside the abscess as the body responds to the bacteria. An abscess can occur with an insect bite, ingrown hair, blocked oil gland, pimple, cyst, or puncture wound. In the early stages, redness and tenderness are the only symptoms. Sometimes, this stage can be treated with antibiotics alone. If the abscess does not respond to antibiotic treatment, it will need to be drained with a small cut, under local anesthesia. Home care The following will help you care for your abscess at home: Soak the wound in hot water or apply hot packs (small towel soaked in hot water) to the area for 20 minutes at a time. Do this three to four times a day. Apply antibiotic cream or ointment onto the skin 3-4 times a day, unless something else was prescribed. Some ointments include an antibiotic plus a local pain reliever. If your doctor prescribed antibiotics, do not stop taking this medication until you have finished the prescribed course or the doctor tells you to stop. You may use an [id number] pain medication to control pain, unless another pain medicine was prescribed. If you have chronic liver or kidney disease or ever had a stomach ulcer or GI bleeding, talk with your doctor before using these any of these. Follow-up care Follow up with your health care provider as advised by our staff. Look at your wound each day for the signs of worsening infection listed below. When to seek medical care Get prompt medical attention if any of the following occur: An increase in redness or swelling Red streaks in the skin leading away from the abscess An increase in local pain or swelling Fever of 100.4F (38C) or higher, or as directed by your health care provider Pus or fluid coming from the abscess Cellulitis You have an infection of the skin known as cellulitis. This usually starts with a scrape, cut, insect bite, blister or other opening in the skin which becomes infected. This is a serious condition. It must be watched closely to be sure the infection is not spreading. With antibiotic treatment, the size of the red area will gradually shrink in size until the skin returns to normal. This will take 7-10 days. The red area should never increase in size once the antibiotic medicine has been started. Occasionally, an infection will be resistant to one antibiotic and another one will have to be used. Home Care: 1) Limit the use of the affected part, since excess movement can cause the infection to spread. 2) If the infection is on your leg, walk as little as possible during the first few days of the treatment. Keep your leg elevated while sitting. This will reduce swelling. 3) Take all of the antibiotic medicine exactly as directed until it is gone. Be careful not to miss any doses, especially during the first seven days. Follow Up with your doctor or this facility as directed. Check the infected area daily for the warning signs listed below. Get Prompt Medical Attention if any of the following occur: -- Spreading area of redness -- Increasing swelling or pain -- Appearance of pus or drainage -- Fever over 100.4 F (38.0 C) oral, or over 101.4 F (38.6 C) rectal, after two days on antibiotics Staph Infection (MRSA) "Staph" is the short name for the common bacteria called "staphylococcus aureus". Staph bacteria are often present on the skin without causing an infection. If it gets under the skin an infection occurs. This causes redness, tenderness, swelling and sometimes fluid drainage. MRSA stands for "Methicillin-Resistant Staph Aureus". Unlike a common staph infection, MRSA bacteria are resistant to the usual antibiotics and harder to treat. Also, MRSA is more toxic than common staph bacteria. It can spread quickly throughout the body and cause a life-threatening illness. MRSA is spread to others by direct physical contact with the bacteria. MRSA can also be transmitted from items contaminated by a person who has the bacteria, such as bandages, towels, bed sheets, or sports equipment. It is not spread through the air. Once you have a MRSA skin infection, you are at risk of having it recur in the future. If MRSA infection is suspected, the doctor may take a wound culture to confirm the diagnosis. Any abscess will be drained. One or sometimes two antibiotics that work against MRSA will be prescribed. Home Care: 1) Take any antibiotics prescribed exactly as directed until they are gone. 2) Follow the same washing procedures as outlined for Household Members below. 3) Keep draining wounds covered with clean, dry bandages. Change dressings as they become soiled. 4) You and those in contact with you should wash their hands frequently with soap and warm water or use an alcohol-based hand cone chocolate dipper. Do this after each time you change the bandage or touch the wound. 5) Avoid sharing personal items such as towels, washcloths, razors, clothing, or uniforms. Wash soiled sheets, towels or clothes in hot water with laundry detergent. Use an automatic clothes dryer set on high to kill any remaining bacteria. 6) Remove any artificial nails and nail mauritanian. 7) If you use a gym, wipe down equipment before and after each use. Treatment Of Household Members If you have been diagnosed with possible MRSA infection, those living with you are at higher risk of carrying the bacteria on their skin or in their nose, even if there is no sign of infection. Bacteria must be removed from the skin of all household members (including you) at the same time, so that it is not passed back and forth. Advise them to remove the bacteria as follows: Wash your whole body (scalp to toes) daily for five days with Hibiclens (chlorhexidine). Scrub fingernails with a brush for one minute twice a day. If any skin infections are present (boils, abscess, infected cut) these must be treated by a doctor. Washing alone will not treat a MRSA infection. Clean counter tops and children's toys; do not share personal items such as toothbrush and razors. It is okay to share glasses, plates, utensils. If antibiotic ointment was prescribed use it as directed. Follow Up with your doctor or as advised by our staff. If a wound culture was taken, call as directed in two days to obtain the results. If the culture result is positive for MRSA, tell medical personnel in the future that you were treated for this type of infection. Get Prompt Medical Attention if any of the following occur: -- Increasing redness, swelling or pain -- Red streaks in the skin around the wound -- Weakness or dizziness -- New appearance of pus or drainage from the wound -- New fever over 100.4 F (38.0 C) Sulfamethoxazole, Trimethoprim Oral tablet What is this medicine? SULFAMETHOXAZOLE; TRIMETHOPRIM or SMX-TMP (suhl fuh meth OK wang zohl; trye METH oh prim) is a combination of a sulfonamide antibiotic and a second antibiotic, trimethoprim. It is used to treat or prevent certain kinds of bacterial infections. It will not work for colds, flu, or other viral infections. How should I use this medicine? Take this medicine by mouth with a full glass of water. Follow the directions on the prescription label. Take your medicine at regular intervals. Do not take it more often than directed. Do not skip doses or stop your medicine early. Talk to your half section ironer regarding the use of this medicine in children. Special care may be needed. This medicine has been used in children as young as 2 months of age. What side effects may I notice from receiving this medicine? Side effects that you should report to your doctor or health emergency care tech as soon as possible: allergic reactions like skin rash or hives, swelling of the face, lips, or tongue breathing problems fever or chills, sore throat irregular heartbeat, chest pain joint or muscle pain pain or difficulty passing urine red pinpoint spots on skin redness, blistering, peeling or loosening of the skin, including inside the mouth unusual bleeding or bruising unusually weak or tired yellowing of the eyes or skin Side effects that usually do not require medical attention (report to your doctor or health emergency care tech if they continue or are bothersome): diarrhea dizziness headache loss of appetite nausea, vomiting nervousness What may interact with this medicine? Do not take this medicine with any of the following medications: aminobenzoate potassium dofetilide metronidazole This medicine may also interact with the following medications: LOUIE inhibitors like benazepril, enalapril, lisinopril, and ramipril cyclosporine digoxin diuretics indomethacin medicines for diabetes methenamine methotrexate phenytoin potassium supplements pyrimethamine sulfinpyrazone tricyclic antidepressants warfarin What if I miss a dose? If you miss a dose, take it as soon as you can. If it is almost time for your next dose, take only that dose. Do not take double or extra doses. Where should I keep my medicine? Keep out of the reach of children. Store at room temperature between 20 to 25 degrees C (68 to 77 degrees F). Protect from light. Throw away any unused medicine after the expiration date. What should I tell my health care provider before I take this medicine? They need to know if you have any of these conditions: anemia asthma being treated with anticonvulsants if you frequently drink alcohol containing drinks kidney disease liver disease low level of folic acid or [id number] dehydrogenase poor nutrition or malabsorption porphyria severe allergies thyroid disorder an unusual or allergic reaction to sulfamethoxazole, trimethoprim, sulfa drugs, other medicines, foods, dyes, or preservatives or trying to get breast-feeding What should I watch for while using this medicine? Tell your doctor or health emergency care tech if your symptoms do not improve. Drink several glasses of water a day to reduce the risk of kidney problems. Do not treat diarrhea with over the counter products. Contact your doctor if you have diarrhea that lasts more than 2 days or if it is severe and watery. This medicine can make you more sensitive to the sun. Keep out of the sun. If you cannot avoid being in the sun, wear protective clothing and use a sunscreen. Do not use sun lamps or tanning beds/booths. Ibuprofen Oral tablet What is this medicine? IBUPROFEN (eye BYOO proe fen) is a non-steroidal anti-inflammatory drug (NSAID). It is used for dental pain, fever, headaches or migraines, osteoarthritis, rheumatoid arthritis, or painful monthly periods. It can also relieve minor aches and pains caused by a cold, flu, or sore throat. How should I use this medicine? Take this medicine by mouth with a glass of water. Follow the directions on the prescription label. Take this medicine with food if your stomach gets upset. Try to not lie down for at least 10 minutes after you take the medicine. Take your medicine at regular intervals. Do not take your medicine more often than directed. A special MedGuide will be given to you by the pharmacist with each prescription and refill. Be sure to read this information carefully each time. Talk to your half section ironer regarding the use of this medicine in children. Special care may be needed. What side effects may I notice from receiving this medicine? Side effects that you should report to your doctor or health emergency care tech as soon as possible: allergic reactions like skin rash, itching or hives, swelling of the face, lips, or tongue black or bloody stools, blood in the urine or in vomit breathing problems changes in vision chest pain general ill feeling or flu-like symptoms nausea or vomiting redness, blistering, peeling or loosening of the skin, including inside the mouth slurred speech or weakness on one side of the body stomach pain unexplained weight gain or swelling unusually weak or tired yellowing of eyes or skin Side effects that usually do not require medical attention (report to your doctor or health emergency care tech if they continue or are bothersome): constipation or diarrhea dizziness gas or heartburn stomach upset What may interact with this medicine? Do not take this medicine with any of the following medications: cidofovir ketorolac methotrexate pemetrexed This medicine may also interact with the following medications: alcohol aspirin diuretics lithium other drugs for inflammation like prednisone warfarin What if I miss a dose? If you miss a dose, take it as soon as you can. If it is almost time for your next dose, take only that dose. Do not take double or extra doses. Where should I keep my medicine? Keep out of the reach of children. Store at room temperature between 15 and 30 degrees C (59 and 86 degrees F). Keep container tightly closed. Throw away any unused medicine after the expiration date. What should I tell my health care provider before I take this medicine? They need to know if you have any of these conditions: asthma cigarette smoker drink more than 3 alcohol containing drinks a day heart disease or circulation problems such as heart failure or leg edema (fluid retention) high blood pressure kidney disease liver disease stomach bleeding or ulcers an unusual or allergic reaction to ibuprofen, aspirin, other NSAIDS, other medicines, foods, dyes, or preservatives or trying to get breast-feeding What should I watch for while using this medicine? Tell your doctor or healthcare professional if your symptoms do not start to get better or if they get worse. This medicine does not prevent heart attack or stroke. In fact, this medicine may increase the chance of a heart attack or stroke. The chance may increase with longer use of this medicine and in people who have heart disease. If you take aspirin to prevent heart attack or stroke, talk with your doctor or health emergency care tech. Do not take other medicines that contain aspirin, ibuprofen, or naproxen with this medicine. Side effects such as stomach upset, nausea, or ulcers may be more likely to occur. Many medicines available without a prescription should not be taken with this medicine. This medicine can cause ulcers and bleeding in the stomach and intestines at any time during treatment. Ulcers and bleeding can happen without warning symptoms and can cause . To reduce your risk, do not smoke cigarettes or drink alcohol while you are taking this medicine. You may get drowsy or dizzy. Do not drive, use machinery, or do anything that needs mental alertness until you know how this medicine affects you. Do not stand or sit up quickly, especially if you are an older patient. This reduces the risk of dizzy or fainting spells. This medicine can cause you to bleed more easily. Try to avoid damage to your teeth and gums when you brush or floss your teeth. You have been given the following additional information: Abscess, Antiobiotic Treatment Only Cellulitis MRSA Skin Infection, Suspected Or Confirmed Sulfamethoxazole, Trimethoprim Oral tablet Ibuprofen Oral tablet (Electronically signed by Jodie Sanchez A.R.N.P. 12/07/2016 18:44)
--- NOTE | 2016-12-07 18:44 | ED MAR SUMMARY ---
..... Medication Administration Record [facility] [address] [place], [place] [id number] Patient: JENNIFER BROWN Visit ID: [id number] 46y, F Weight: 79.3 kg Height/Length: 65 in BMI: 29.1 ALLERGIES: Zofran
--- NOTE | 2016-12-07 18:44 | ED ORDER SUMMARY ---
..... Patient: JENNIFER BROWN OrderSheet [facility] VisitID: [id number] [address] [place] [address] 46y, F Registration Date/Time: 12/07/2016 ORDER SHEET Weight: 79.3 kg (stated) Allergies: Zofran GENERAL ORDERS: - (please luis area of erythema with skin pen) (18:04 12/07/2016 HBivens A.R.N.P.) (18:11 EHassan R.N.) Dress Wounds (18:04 12/07/2016 HBivens A.R.N.P.) (18:11 EHassan R.N.) MEDICATION ORDERS: IV FLUIDS: ORDER SHEET NOTES: [Electronically signed by Alethea Gaston R.N. (18:25 12/07/2016)] [Electronically signed by Jodie Sanchez.R.N.P. (18:44 12/07/2016)] [Electronically locked/signed by Alethea Gaston R.N. (18:25 12/07/2016)]
--- NOTE | 2016-12-07 18:44 | ED MED RECONCILIATION SUMMARY ---
Patient: JENNIFER BROWN Medication Reconciliation Report [facility] VisitID: [id number] [address] [place] [address] 46y, F Registration Date/Time: 12/07/2016 Weight: 79.3 kg Height/Length: 65 in. BMI: 29.1 ALLERGIES: Zofran The patient's Home Medications are listed below: NONE. The source(s) of the original Home Medication information: patient The following Medications were given to the patient in the Emergency Department: None. The following Medications were prescribed to the patient: Bactrim DS 800 mg / 160 mg: take 1 tablet orally every 12 hours for 10 days. No refill. -- Jodie Sanchez A.R.N.P. Motrin 800 mg tablets: take 1 tablet orally every 8 hours as needed for pain. Dispense thirty (30). No refills. Substitution is permissible. -- Jodie Sanchez A.RMookN.P.
--- NOTE | 2016-12-07 18:44 | ED MAR SUMMARY ---
..... Medication Administration Record [facility] [address] [place], [place] [id number] Patient: JENNIFER BROWN Visit ID: [id number] 46y, F Weight: 79.3 kg Height/Length: 65 in BMI: 29.1 ALLERGIES: Zofran
--- NOTE | 2016-12-07 18:44 | ED ORDER SUMMARY ---
..... Patient: JENNIFER BROWN OrderSheet [facility] VisitID: [id number] [address] [place] [address] 46y, F Registration Date/Time: 12/07/2016 ORDER SHEET Weight: 79.3 kg (stated) Allergies: Zofran GENERAL ORDERS: - (please luis area of erythema with skin pen) (18:04 12/07/2016 HBivens A.R.N.P.) (18:11 EHassan R.N.) Dress Wounds (18:04 12/07/2016 HBivens A.R.N.P.) (18:11 EHassan R.N.) MEDICATION ORDERS: IV FLUIDS: ORDER SHEET NOTES: [Electronically signed by Alethea Gaston R.N. (18:25 12/07/2016)] [Electronically signed by Jodie Sanchez.R.N.P. (18:44 12/07/2016)] [Electronically locked/signed by Alethea Gaston R.N. (18:25 12/07/2016)]
--- NOTE | 2016-12-07 18:44 | ED MED RECONCILIATION SUMMARY ---
Patient: JENNIFER BROWN Medication Reconciliation Report [facility] VisitID: [id number] [address] [place] [address] 46y, F Registration Date/Time: 12/07/2016 Weight: 79.3 kg Height/Length: 65 in. BMI: 29.1 ALLERGIES: Zofran The patient's Home Medications are listed below: NONE. The source(s) of the original Home Medication information: patient The following Medications were given to the patient in the Emergency Department: None. The following Medications were prescribed to the patient: Bactrim DS 800 mg / 160 mg: take 1 tablet orally every 12 hours for 10 days. No refill. -- Jodie Sanchez A.R.N.P. Motrin 800 mg tablets: take 1 tablet orally every 8 hours as needed for pain. Dispense thirty (30). No refills. Substitution is permissible. -- Jodie Sanchez A.RMookN.P.
== END 2016-12-07 18:24 | disposition home or self-care (01) ==
LOC: ED SRH 15:57
DX: L02.211 Cutaneous abscess of abdominal wall (principal); F17.200 Nicotine dependence, unspecified, uncomplicated

== ENCOUNTER 2017-02-18 20:59 | Emergency (ER) | payer OTHER ==
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
--- NOTE | 2017-02-18 22:10 | ED ORDER SUMMARY ---
..... Patient: JENNIFER BROWN OrderSheet [facility] VisitID: [id number] [address] [place] [address] 46y, F Registration Date/Time: 02/18/2017 ORDER SHEET Weight: 79.3 kg (stated) Allergies: Zofran GENERAL ORDERS: Cervical Spine 2 or 3V Urgent (21:20 02/18/2017 Dustin AvalosAMook-Claire) (Ack 21:21 AMcQuoid ER Tech1) (21:36 [facility]) MEDICATION ORDERS: IV FLUIDS: ORDER SHEET NOTES: [Electronically signed by Sheriff Oseas Powell (22:19 02/18/2017)] [Electronically signed by Violetta Ha P.A.-C (22:46 02/18/2017)] [Electronically locked/signed by Sheriff Oseas Powell (22:19 02/18/2017)]
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
--- NOTE | 2017-02-18 22:10 | ED ORDER SUMMARY ---
..... Patient: JENNIFER BROWN OrderSheet [facility] VisitID: [id number] [address] [place] [address] 46y, F Registration Date/Time: 02/18/2017 ORDER SHEET Weight: 79.3 kg (stated) Allergies: Zofran GENERAL ORDERS: Cervical Spine 2 or 3V Urgent (21:20 02/18/2017 Dustin AvalosAMook-Claire) (Ack 21:21 AMcQuoid ER Tech1) (21:36 [facility] [place]) MEDICATION ORDERS: IV FLUIDS: ORDER SHEET NOTES: [Electronically signed by Sheriff Oseas Powell (22:19 02/18/2017)] [Electronically signed by Violetta Ha P.A.-C (22:46 02/18/2017)] [Electronically locked/signed by Sheriff Oseas Powell (22:19 02/18/2017)]
--- NOTE | 2017-02-18 22:46 | ED MED RECONCILIATION SUMMARY ---
Patient: JENNIFER BROWN Medication Reconciliation Report [facility] VisitID: [id number] [address] [place] [address] 46y, F Registration Date/Time: 02/18/2017 Weight: 79.3 kg Height/Length: 65 in. BMI: 29.1 ALLERGIES: Zofran The patient's Home Medications are listed below: NONE. The source(s) of the original Home Medication information: Not obtained. The following Medications were given to the patient in the Emergency Department: None. The following Medications were prescribed to the patient: Flexeril 10 mg: take 1 orally every 8 hours as needed for muscle spasm. Dispense ten (10). No refills. Substitution is permissible. -- Violetta Ha, P.A.-C Ibuprofen 800 mg tablets: take 1 tablet orally every 8 hours for 5 days, as needed for pain or stiffness. Dispense fifteen (15). No refill. -- Violetta Ha, P.A.-C Phenergan 12.5 mg tablets: take 1 orally as needed for nausea. Dispense ten (10). No refill. Substitution is permissible -- Violetta Ha, P.A.-C
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
--- NOTE | 2017-02-18 22:46 | ED MED RECONCILIATION SUMMARY ---
Patient: JENNIFER BROWN Medication Reconciliation Report [facility] VisitID: [id number] [address] [place] [address] 46y, F Registration Date/Time: 02/18/2017 Weight: 79.3 kg Height/Length: 65 in. BMI: 29.1 ALLERGIES: Zofran The patient's Home Medications are listed below: NONE. The source(s) of the original Home Medication information: Not obtained. The following Medications were given to the patient in the Emergency Department: None. The following Medications were prescribed to the patient: Flexeril 10 mg: take 1 orally every 8 hours as needed for muscle spasm. Dispense ten (10). No refills. Substitution is permissible. -- Violetta Ha, P.A.-C Ibuprofen 800 mg tablets: take 1 tablet orally every 8 hours for 5 days, as needed for pain or stiffness. Dispense fifteen (15). No refill. -- Violetta Ha, P.A.-C Phenergan 12.5 mg tablets: take 1 orally as needed for nausea. Dispense ten (10). No refill. Substitution is permissible -- Violetta Ha, P.A.-C
--- NOTE | 2017-02-18 22:46 | ED MAR SUMMARY ---
..... Medication Administration Record [facility] [address] [place], [place] [id number] Patient: JENNIFER BROWN Visit ID: [id number] 46y, F Weight: 79.3 kg Height/Length: 65 in BMI: 29.1 ALLERGIES: Zofran
--- NOTE | 2017-02-18 22:46 | ED MAR SUMMARY ---
..... Medication Administration Record [facility] [address] [place], [place] [id number] Patient: JENNIFER BROWN Visit ID: [id number] 46y, F Weight: 79.3 kg Height/Length: 65 in BMI: 29.1 ALLERGIES: Zofran
== END 2017-02-18 22:15 | disposition home or self-care (01) ==
LOC: ED SRH 20:59
DX: S06.0X0A Concussion without loss of consciousness, initial encounter (principal); S16.1XXA Strain of muscle, fascia and tendon at neck level, initial encounter; V49.40XA Driver injured in collision with unspecified motor vehicles in traffic accident, initial encounter; Y93.89 Activity, other specified; Y92.410 Unspecified street and highway as the place of occurrence of the external cause; Y99.9 Unspecified external cause status; M54.12 Radiculopathy, cervical region; F17.210 Nicotine dependence, cigarettes, uncomplicated; Z88.8 Allergy status to other drugs, medicaments and biological substances